=== PATIENT | male | born 1970 | race Caucasian/White ===

== ENCOUNTER 2016-07-25 08:09 | Emergency (ER) | payer OTHER ==
[2016-07-25] MEDS ORDERED: DEXAMETHASONE 1 MG/ML 30 ML BOTTLE PO ONE (08:39)
[2016-07-25 08:40] VITALS: BP 135/62; PULSE 78; RESP 18; TEMP 98; O2SAT 96
[2016-07-25] MEDS ORDERED: DEXAMETHASONE 4 MG TAB ONE (08:43)
--- NOTE | 2016-07-25 08:46 | UCPHY ---
H & P Time Seen by Provider: 07/25/16 08:29 Patient Type: New HPI/ROS: This patient reports left submandibular swelling onset over the past 24 hours. He had difficulty sleeping due to the pain which he ranks as 6/10 after ibuprofen. He had 400 mg of ibuprofen at 3:00 a.m.. He reports the pain worsens when he opens his mouth and notes no other exacerbating or alleviating factors. His recent history is notable for feeling fatigue and low-grade subjective fevers with nasal congestion over the past 10 days or so. On Friday , 4 days prior to this visit he visited a [facility] and was started on Augmentin 875 twice daily for maxillary sinusitis. He reports compliance with the Augmentin with less sinus symptoms at this time. ROS: Constitutional: He reports ongoing subjective low-grade fevers. No high fevers or chills. HEENT: He denies any HEENT complaints other than the submandibular swelling and some mild left lower tooth pain. Neuro: No confusion. No neck stiffness. Integumentary: No skin rash. 7 point ROS is otherwise negative. Past Medical/Surgical History: Otherwise healthy Smoking Status: Never smoked Physical Exam: Physical Exam Vital signs are normal. General: No acute distress HEENT: The patient has moderate left submandibular swelling with associated tenderness. No significant trismus. There is mild left lower premolar tenderness to percussion but no adjacent fluctuance to the gums. Maintains a Mallampati 2 airway. No stridor or drooling. Neck: Supple with no anterior cervical lymphadenopathy. Eyes: Pupils equal and react to light. Extraocular motions are intact. Lungs: No respiratory distress. Cardiac: Brisk capillary refill is intact throughout. Skin: No rash or pallor. There is no warmth overlying the area of swelling. Neuro: Alert and oriented with no sensorimotor deficits. Cranial nerves 2-12 are intact Initial differential diagnosis: Submandibular salivary gland duct obstruction, apical abscess of lower premolar, submandibular gland swelling Constitutional: Initial Vital Signs Temperature (C) 36.6 C 07/25/16 08:38 Heart Rate 78 07/25/16 08:38 Respiratory Rate 18 07/25/16 08:38 Blood Pressure 135/62 H 07/25/16 08:38 O2 Sat (%) 96 07/25/16 08:38 O2 Delivery Mode Room Air Allergies/Adverse Reactions: No Known Allergies Allergy (Unverified 05/10/12 09:45) Home Medications: Medication Instructions Recorded Amoxicillin 07/25/16 Glaucmoa Eye Drops 07/25/16 Hydrocodone/APAP 5/325 [[place] 1 - 2 tab PO Q4PRN PRN #12 tab 07/25/16 5/325 (*)] Prozac 10 MG (*) 07/25/16 Testosterone 07/25/16 Medical Decision Making ED Course/Re-evaluation: Course: Decadron 10 mg p. o. I paged the on-call ENT physician at a 8:45 a.m. to facilitate a follow-up further evaluation of patient does improve with treatment for sialoadenitis I spoke with Dr. Garzon-ENT physician regarding the case knee agrees with the treatment plan. He will see the patient follow up with the patient is not improving with warm packs-gentle massage, lemon drops and Augmentin. The patient had departed shortly prior to the called back by Dr. Garzon so our nurse called him back to add the instructions of warm packs and gentle massage. - Data Points Medications Given: Discontinued Medications Dexamethasone (Decadron Intensol) 10 mg PO EDNOW ONE Stop: 07/25/16 08:40 Last Admin: 07/25/16 08:55 Dose: 10 mg Departure - Departure Disposition: Home, Routine, Self-Care Clinical Impression: Submandibular gland swelling Condition: Good Instructions: Sialoadenitis (ED) Additional Instructions: Diagnosis: Salivary gland swelling Plan: Continue incomplete Augmentin antibiotic Eat limit drops regularly to increase salivary production elderly salivary duct stone as that is the likely culprit. You received Decadron steroid here to diminish swelling which should also help. Continue ibuprofen 400-600 mg per 6 hours as needed for pain. Add Tylenol or Vicodin if needed. No driving, alcohol or come Vicodin Follow up with Dr. Garzon-ENT specialist. Today to make an appointment sometime within the next 5-7 days for recheck. The differential diagnosis also includes potential apical abscess of the lower tooth for this reason, consider follow-up with a dentist for any ongoing symptoms despite treatment plan. Return here to the emergency department for any significant worsening despite the treatment plan. Referrals: MONICA WATSON [Primary Care Provider] - As per Instructions Hi Garzon MD [Medical Doctor] - As per Instructions Prescriptions: Hydrocodone/APAP 5/325 [[place] 5/325 (*)] 1 - 2 tab PO Q4PRN PRN #12 tab PRN Reason: Pain - PQRS PQRS Measurement: NA
== END 2016-07-25 08:58 | disposition home or self-care (01) ==
LOC: CED 08:09
DX: R22.0 Localized swelling, mass and lump, head (principal); K11.8 Other diseases of salivary glands
CPT/HCPCS: G0463-PO